=== PATIENT | female | born 1950 | race Hispanic/Latino ===

== ENCOUNTER 2021-10-24 13:26 | Inpatient (IN) | payer MEDICARE, OTHER ==
[~2021-10-24] VITALS: Ht 165.1 cm; Wt 65.3 kg
[2021-10-24] MEDS ORDERED: ONDANSETRON HCL INJ 2MG/ML 2ML 2 MG/ML VIAL IV PRN (16:00)
[2021-10-24] MEDS ORDERED: SODIUM CHLORIDE 0.9% 1000ML 1,000 ML IV SCH (16:00)
[2021-10-24 16:32] LABS: BASOPHILS % 0.2 % (0.0-1.0); EOSINOPHILS % 0.3 % (0.0-6.0); HEMOGLOBIN 13.1 g/dL (12.0-16.0); LYMPHOCYTES # (AUTO) 1.2 (1.0-3.2); LYMPHOCYTES % 8.8 % (18.0-39.1); MEAN CORPUSCULAR HEMOGLOBIN 28.3 pg (28-32); MEAN CORPUSCULAR HGB CONC 31.2 g/dL (31-35); MEAN CORPUSCULAR VOLUME 90.7 fL (81-99); MONOCYTES # (AUTO) 0.7 (0.2-0.8); MONOCYTES % 5.3 % (4.4-11.3); NEUTROPHILS # (AUTO) 11.1 (2.1-6.9); NEUTROPHILS % 84.9 % (38.7-80.0); PLATELET COUNT 252 x10e3/uL (140-360); RED BLOOD COUNT 4.63 x10e6/uL (3.6-5.1); RED CELL DISTRIBUTION WIDTH 12.5 % (11.7-14.4)
[2021-10-24 16:42] LABS: INR 0.9
[2021-10-24 16:48] LABS: ANION GAP 15.9 mmol/L (8-16); CALCIUM 9.4 mg/dL (8.4-10.2); CREATININE, SERUM 0.85 mg/dL (0.57-1.11); POTASSIUM 3.9 mmol/L (3.5-5.1)
[2021-10-24] MEDS: SODIUM CHLORIDE 0.9% 1000ML 1,000 ML IV SCH (20:31)
[2021-10-24] MEDS: Morphine 4mg INJECTION 4 MG/ML INJ IV PRN (20:31)
[2021-10-24 21:19] VITALS: BP 120/79
[2021-10-24] MEDS ORDERED: FAMOTIDINE40 MG PO (21:25)
[2021-10-24] MEDS ORDERED: AMLODIPINE BES2.5 MG PO (21:25)
[2021-10-24] MEDS ORDERED: SIMVASTATIN20 MG PO (21:25)
[2021-10-24] MEDS ORDERED: NAMZARIC 21 MG1 EACH (21:25)
[2021-10-24] MEDS ORDERED: CITALOPRAM HBR20 MG PO (21:25)
[2021-10-24] MEDS ORDERED: METOPROLOL TART50 MG PO (21:25)
[2021-10-24] MEDS ORDERED: LEVOTHYROXINE50 MCG PO (21:25)
[2021-10-24] MEDS ORDERED: namzaric PO (21:42)
[2021-10-25] VITALS (9 sets, daily range): BP systolic 108–156; BP diastolic 51–90
[2021-10-25 04:47] LABS: BASOPHILS % 0.3 % (0.0-1.0); EOSINOPHILS # (AUTO) 0.2 (0.0-0.4); EOSINOPHILS % 2.3 % (0.0-6.0); HEMATOCRIT 36.9 % (34.2-44.1); HEMOGLOBIN 11.8 g/dL (12.0-16.0); LYMPHOCYTES # (AUTO) 0.8 (1.0-3.2); LYMPHOCYTES % 9.6 % (18.0-39.1); MEAN CORPUSCULAR HEMOGLOBIN 28.5 pg (28-32); MEAN CORPUSCULAR VOLUME 89.1 fL (81-99); MONOCYTES # (AUTO) 0.5 (0.2-0.8); MONOCYTES % 5.2 % (4.4-11.3); NEUTROPHILS # (AUTO) 7.2 (2.1-6.9); NEUTROPHILS % 82.1 % (38.7-80.0); PLATELET COUNT 215 x10e3/uL (140-360); RED BLOOD COUNT 4.14 x10e6/uL (3.6-5.1); RED CELL DISTRIBUTION WIDTH 12.4 % (11.7-14.4)
[2021-10-25 05:02] LABS: ANION GAP 14.6 mmol/L (8-16); CALCIUM 8.6 mg/dL (8.4-10.2); CREATININE, SERUM 0.78 mg/dL (0.57-1.11); POTASSIUM 3.6 mmol/L (3.5-5.1)
[2021-10-25 05:16] LABS: MAGNESIUM 1.8 MG/DL (1.3-2.1)
[2021-10-25 05:36] LABS: THYROID STIMULATING HORMONE 0.267 uIU/mL (0.350-4.940)
[2021-10-25] MEDS: METOPROLOL TARTRATE 50 MG TAB PO SCH ×2 (09:00→18:00)
[2021-10-25] MEDS: LEVOTHYROXINE SODIUM 50 MCG TAB PO SCH (09:45)
[2021-10-25] MEDS: SENNA-S TABLET PO SCH ×2 (09:45→18:00)
[2021-10-25] MEDS: SODIUM CHLORIDE 0.9% 1000ML 1,000 ML IV SCH ×2 (09:48→22:05)
[2021-10-25] MEDS: Morphine 4mg INJECTION 4 MG/ML INJ IV PRN ×3 (09:50→17:56)
[2021-10-25] MEDS: ENOXAPARIN SOD INJ 40 MG/0.4 ML SYR SC SCH (18:01)
[2021-10-25 18:08] LABS: CLARITY,URINE SL CLOUDY (CLEAR); COLOR,URINE YELLOW (YELLOW)
[2021-10-25 18:09] LABS: KETONES,URINE NEGATIVE (NEGATIVE); LEUKOCYTE ESTERASE ,URINE NEGATIVE (NEGATIVE); NITRITE,URINE NEGATIVE (NEGATIVE); PROTEIN,URINE DIPSTICK TRACE (NEGATIVE); URINE UROBILINOGEN 1 mg/dL (0.2 - 1)
[2021-10-25 18:12] LABS: BACTERIA,URINE MANY /HPF; EPITHELIAL CELLS,URINE FEW /LPF; RBC,URINE 0-5 /HPF (0-5); WBC,URINE (MAN) 0-5 /HPF (0-5)
[2021-10-25] MEDS: CITALOPRAM HYDROBROMIDE 20 MG TAB PO SCH (21:00)
[2021-10-25] MEDS: FAMOTIDINE 20 MG TAB PO SCH (22:01)
[2021-10-25] MEDS: ACETAMINOPHEN 325 MG TAB PO PRN (22:02)
[2021-10-25] MEDS: HYDROCODONE/APAP 7.5MG-325MG 1 EA TAB PO PRN (22:02)
[2021-10-26] VITALS (7 sets, daily range): BP systolic 103–150; BP diastolic 63–116
[2021-10-26] MEDS: HYDROCODONE/APAP 7.5MG-325MG 1 EA TAB PO PRN (00:56)
[2021-10-26] MEDS: LEVOTHYROXINE SODIUM 50 MCG TAB PO SCH (08:17)
[2021-10-26] MEDS: SENNA-S TABLET PO SCH ×2 (09:29→17:01)
[2021-10-26] MEDS: METOPROLOL TARTRATE 50 MG TAB PO SCH ×2 (09:30→17:01)
[2021-10-26] MEDS: ACETAMINOPHEN 325 MG TAB PO PRN ×2 (09:39→17:00)
[2021-10-26] MEDS: SODIUM CHLORIDE 0.9% 1000ML 1,000 ML IV SCH (12:43)
[2021-10-26] MEDS: ENOXAPARIN SOD INJ 40 MG/0.4 ML SYR SC SCH (17:00)
[2021-10-26] MEDS: CITALOPRAM HYDROBROMIDE 20 MG TAB PO SCH (21:24)
[2021-10-26] MEDS: FAMOTIDINE 20 MG TAB PO SCH (21:25)
[2021-10-27] VITALS (7 sets, daily range): BP systolic 94–146; BP diastolic 56–96
[2021-10-27] MEDS: MELATONIN 5 MG TABLET PO SCH ×2 (01:00→21:00)
[2021-10-27] MEDS: SODIUM CHLORIDE 0.9% 1000ML 1,000 ML IV SCH ×2 (05:36→17:10)
[2021-10-27] MEDS: LEVOTHYROXINE SODIUM 50 MCG TAB PO SCH (08:19)
[2021-10-27] MEDS: SENNA-S TABLET PO SCH ×2 (08:39→17:51)
[2021-10-27] MEDS: METOPROLOL TARTRATE 50 MG TAB PO SCH (08:39)
[2021-10-27] MEDS ORDERED: MAGNESIUM HYDROXIDE 30 ML UDC PO NR (10:30)
[2021-10-27] MEDS ORDERED: MAGNESIUM HYDROXIDE 30 ML UDC PO PRN (10:30)
[2021-10-27] MEDS ORDERED: BISACODYL 10 MG SUPP PR NR (10:45)
[2021-10-27] MEDS: MAGNESIUM HYDROXIDE 30 ML UDC PO PRN ×2 (14:30→21:05)
[2021-10-27] MEDS: ENOXAPARIN SOD INJ 40 MG/0.4 ML SYR SC SCH (17:00)
[2021-10-27] MEDS: Morphine 4mg INJECTION 4 MG/ML INJ IV PRN (17:09)
[2021-10-27] MEDS: METOPROLOL TARTRATE 25 MG TAB PO SCH (17:50)
[2021-10-27] MEDS: FAMOTIDINE 20 MG TAB PO SCH (20:54)
[2021-10-27] MEDS: CITALOPRAM HYDROBROMIDE 20 MG TAB PO SCH (20:54)
[2021-10-28] VITALS (8 sets, daily range): BP systolic 87–160; BP diastolic 63–79
[2021-10-28 05:37] LABS: BASOPHILS % 0.4 % (0.0-1.0); EOSINOPHILS # (AUTO) 0.4 (0.0-0.4); EOSINOPHILS % 5.1 % (0.0-6.0); HEMATOCRIT 34.9 % (34.2-44.1); HEMOGLOBIN 11.2 g/dL (12.0-16.0); LYMPHOCYTES # (AUTO) 1.3 (1.0-3.2); LYMPHOCYTES % 15.8 % (18.0-39.1); MEAN CORPUSCULAR HEMOGLOBIN 28.1 pg (28-32); MEAN CORPUSCULAR HGB CONC 32.1 g/dL (31-35); MEAN CORPUSCULAR VOLUME 87.7 fL (81-99); MONOCYTES # (AUTO) 0.7 (0.2-0.8); MONOCYTES % 8.6 % (4.4-11.3); NEUTROPHILS # (AUTO) 5.6 (2.1-6.9); NEUTROPHILS % 69.7 % (38.7-80.0); PLATELET COUNT 224 x10e3/uL (140-360); RED BLOOD COUNT 3.98 x10e6/uL (3.6-5.1); RED CELL DISTRIBUTION WIDTH 12.4 % (11.7-14.4)
[2021-10-28 06:12] LABS: ANION GAP 13.1 mmol/L (8-16); CALCIUM 8.3 mg/dL (8.4-10.2); CREATININE, SERUM 0.68 mg/dL (0.57-1.11); POTASSIUM 3.1 mmol/L (3.5-5.1)
[2021-10-28] MEDS: LEVOTHYROXINE SODIUM 50 MCG TAB PO SCH (07:30)
[2021-10-28] MEDS ORDERED: POTASSIUM CHLORIDE 20MEQ/100ML 100 ML IV ONE (09:00)
[2021-10-28] MEDS: METOPROLOL TARTRATE 25 MG TAB PO SCH ×2 (09:00→17:13)
[2021-10-28] MEDS: SENNA-S TABLET PO SCH ×2 (09:00→17:14)
[2021-10-28] MEDS ORDERED: HYDRALAZINE HCL 20 MG/ML VIAL IV PRN (09:00)
[2021-10-28] MEDS: SOD CHL 0.45%/POT CHL 20MEQ 1,000 ML IV SCH ×2 (09:27→21:14)
[2021-10-28] MEDS ORDERED: EPHEDRINE SULFATE INJ 50 MG/ML VIAL ONE (12:52)
[2021-10-28] MEDS ORDERED: LIDOCAINE HCL 2% LOCAL INJ 5 ML SDV VIAL INJ ONE (12:52)
[2021-10-28] MEDS ORDERED: ONDANSETRON HCL INJ 2MG/ML 2ML 2 MG/ML VIAL ONE (12:52)
[2021-10-28] MEDS ORDERED: POVIDONE IODINE 0.05% 0.05 % ML PO ONE (12:52)
[2021-10-28] MEDS ORDERED: DEXAMETHASONE SOD PHOS INJ 4 MG/ML SDV ONE (12:52)
[2021-10-28] MEDS ORDERED: PROPOFOL IV EMULSION 10 MG/ML 20 ML VIAL ONE (12:52)
[2021-10-28] MEDS ORDERED: SEVOFLURANE INHAL SOLN 250 ML PEN BTL ONE (12:52)
[2021-10-28] MEDS ORDERED: FENTANYL CITRATE/PF 100MCG/2 ML INJ ONE ×2 (13:16→15:19)
[2021-10-28] MEDS ORDERED: ACETAMINOPHEN 1000 MG/100 ML IV PRN (15:00)
[2021-10-28] MEDS ORDERED: HYDROCODONE/APAP 5MG-325MG TAB PO PRN (15:00)
[2021-10-28] MEDS ORDERED: ONDANSETRON HCL INJ 2MG/ML 2ML 2 MG/ML VIAL IV PRN (15:00)
[2021-10-28] MEDS ORDERED: SODIUM CHLORIDE 0.9% 1000ML 1,000 ML IV SCH ×2 (15:00)
[2021-10-28] MEDS: MAGNESIUM HYDROXIDE 30 ML UDC PO PRN (17:12)
[2021-10-28] MEDS: BISACODYL 10 MG SUPP PR PRN (17:14)
[2021-10-28] MEDS: FAMOTIDINE 20 MG TAB PO SCH (20:16)
[2021-10-28] MEDS: MELATONIN 5 MG TABLET PO SCH (20:16)
[2021-10-28] MEDS: CITALOPRAM HYDROBROMIDE 20 MG TAB PO SCH (20:16)
[2021-10-28] MEDS: RIVAROXABAN 10 MG TABLET PO SCH (21:14)
[2021-10-29] VITALS (8 sets, daily range): BP systolic 107–146; BP diastolic 61–99
[2021-10-29] MEDS: HYDROCODONE/APAP 7.5MG-325MG 1 EA TAB PO PRN ×2 (00:02→10:28)
[2021-10-29 05:42] LABS: HEMATOCRIT 31.4 % (34.2-44.1); HEMOGLOBIN 10.3 g/dL (12.0-16.0)
[2021-10-29 06:35] LABS: ANION GAP 13.6 mmol/L (8-16); CALCIUM 8.3 mg/dL (8.4-10.2); CREATININE, SERUM 0.74 mg/dL (0.57-1.11); POTASSIUM 4.6 mmol/L (3.5-5.1)
[2021-10-29 07:08] LABS: MAGNESIUM 2.4 MG/DL (1.3-2.1); PHOSPHORUS 3.2 MG/DL (2.3-4.7)
[2021-10-29] MEDS: SENNA-S TABLET PO SCH ×2 (10:27→17:00)
[2021-10-29] MEDS: METOPROLOL TARTRATE 25 MG TAB PO SCH ×2 (10:27→17:00)
[2021-10-29] MEDS: CELECOXIB 100 MG CAP PO SCH ×2 (10:27→17:00)
[2021-10-29] MEDS: MAGNESIUM HYDROXIDE 30 ML UDC PO PRN (10:28)
[2021-10-29] MEDS: GABAPENTIN 100 MG CAP PO SCH ×3 (12:32→21:03)
[2021-10-29] MEDS: BISACODYL 10 MG SUPP PR PRN (12:32)
[2021-10-29] MEDS: RIVAROXABAN 10 MG TABLET PO SCH (21:03)
[2021-10-29] MEDS: MELATONIN 5 MG TABLET PO SCH (21:03)
[2021-10-29] MEDS: FAMOTIDINE 20 MG TAB PO SCH (21:03)
[2021-10-29] MEDS: CITALOPRAM HYDROBROMIDE 20 MG TAB PO SCH (21:03)
[2021-10-30] VITALS (8 sets, daily range): BP systolic 88–126; BP diastolic 51–91
[2021-10-30 06:07] LABS: BASOPHILS # (AUTO) 0.1 (0.0-0.1); BASOPHILS % 0.7 % (0.0-1.0); EOSINOPHILS # (AUTO) 0.5 (0.0-0.4); EOSINOPHILS % 6.3 % (0.0-6.0); HEMATOCRIT 32.8 % (34.2-44.1); HEMOGLOBIN 10.1 g/dL (12.0-16.0); LYMPHOCYTES # (AUTO) 1.6 (1.0-3.2); LYMPHOCYTES % 20.8 % (18.0-39.1); MEAN CORPUSCULAR HEMOGLOBIN 27.9 pg (28-32); MEAN CORPUSCULAR HGB CONC 30.8 g/dL (31-35); MEAN CORPUSCULAR VOLUME 90.6 fL (81-99); MONOCYTES # (AUTO) 0.8 (0.2-0.8); NEUTROPHILS # (AUTO) 4.6 (2.1-6.9); NEUTROPHILS % 61.8 % (38.7-80.0); PLATELET COUNT 244 x10e3/uL (140-360); RED BLOOD COUNT 3.62 x10e6/uL (3.6-5.1); RED CELL DISTRIBUTION WIDTH 12.8 % (11.7-14.4)
[2021-10-30 06:31] LABS: ANION GAP 12.8 mmol/L (8-16); CALCIUM 8.5 mg/dL (8.4-10.2); CREATININE, SERUM 0.74 mg/dL (0.57-1.11); POTASSIUM 3.8 mmol/L (3.5-5.1)
[2021-10-30] MEDS: LEVOTHYROXINE SODIUM 50 MCG TAB PO SCH (07:34)
[2021-10-30] MEDS ORDERED: ONDANSETRON HCL 4 MG ORAL DISINTEGRATING TAB PO PRN (08:45)
[2021-10-30] MEDS: SENNA-S TABLET PO SCH ×2 (08:49→16:36)
[2021-10-30] MEDS: CELECOXIB 100 MG CAP PO SCH ×2 (08:49→16:44)
[2021-10-30] MEDS: METOPROLOL TARTRATE 25 MG TAB PO SCH ×2 (08:49→16:37)
[2021-10-30] MEDS: GABAPENTIN 100 MG CAP PO SCH ×4 (08:49→21:44)
[2021-10-30] MEDS: RIVAROXABAN 10 MG TABLET PO SCH (21:44)
[2021-10-30] MEDS: CITALOPRAM HYDROBROMIDE 20 MG TAB PO SCH (21:44)
[2021-10-30] MEDS: FAMOTIDINE 20 MG TAB PO SCH (21:44)
[2021-10-30] MEDS: MELATONIN 5 MG TABLET PO SCH (21:44)
[2021-10-31] VITALS (7 sets, daily range): BP systolic 94–134; BP diastolic 42–85
[2021-10-31] MEDS: GABAPENTIN 100 MG CAP PO SCH ×4 (07:30→22:11)
[2021-10-31] MEDS: LEVOTHYROXINE SODIUM 50 MCG TAB PO SCH (07:30)
[2021-10-31] MEDS: CELECOXIB 100 MG CAP PO SCH ×2 (08:00→17:00)
[2021-10-31] MEDS: SENNA-S TABLET PO SCH ×2 (09:00→17:00)
[2021-10-31] MEDS: METOPROLOL TARTRATE 25 MG TAB PO SCH ×2 (09:00→17:00)
[2021-10-31] MEDS: FAMOTIDINE 20 MG TAB PO SCH (22:11)
[2021-10-31] MEDS: RIVAROXABAN 10 MG TABLET PO SCH (22:11)
[2021-10-31] MEDS: MELATONIN 5 MG TABLET PO SCH (22:11)
[2021-10-31] MEDS: CITALOPRAM HYDROBROMIDE 20 MG TAB PO SCH (22:11)
[2021-10-31] MEDS ORDERED: SODIUM CHLORIDE 0.9% 250ML 250 ML ONE (22:16)
[2021-11-01] VITALS (7 sets, daily range): BP systolic 96–129; BP diastolic 56–88
[2021-11-01] MEDS: METOPROLOL TARTRATE 25 MG TAB PO SCH ×3 (09:00→16:25)
[2021-11-01] MEDS: CELECOXIB 100 MG CAP PO SCH ×2 (10:02→16:24)
[2021-11-01] MEDS: LEVOTHYROXINE SODIUM 50 MCG TAB PO SCH (10:02)
[2021-11-01] MEDS: SENNA-S TABLET PO SCH ×2 (10:02→16:24)
[2021-11-01] MEDS: GABAPENTIN 100 MG CAP PO SCH ×4 (10:04→20:33)
[2021-11-01] MEDS: MELATONIN 5 MG TABLET PO SCH (20:32)
[2021-11-01] MEDS: CITALOPRAM HYDROBROMIDE 20 MG TAB PO SCH (20:32)
[2021-11-01] MEDS: RIVAROXABAN 10 MG TABLET PO SCH (20:33)
[2021-11-01] MEDS: FAMOTIDINE 20 MG TAB PO SCH (20:33)
[2021-11-02] VITALS: BP 131/68
[2021-11-02 04:00] VITALS: BP 155/80
[2021-11-02] MEDS: GABAPENTIN 100 MG CAP PO SCH ×4 (07:30→20:37)
[2021-11-02] MEDS: LEVOTHYROXINE SODIUM 50 MCG TAB PO SCH (07:30)
[2021-11-02] MEDS: CELECOXIB 100 MG CAP PO SCH ×2 (08:00→17:00)
[2021-11-02] MEDS: SENNA-S TABLET PO SCH ×2 (09:00→17:00)
[2021-11-02] MEDS: METOPROLOL TARTRATE 25 MG TAB PO SCH ×2 (09:00→17:00)
[2021-11-02 13:27] VITALS: BP 132/71
[2021-11-02 16:59] VITALS: BP 137/78
[2021-11-02 20:00] VITALS: BP 131/50
[2021-11-02] MEDS: MELATONIN 5 MG TABLET PO SCH (20:37)
[2021-11-02] MEDS: FAMOTIDINE 20 MG TAB PO SCH (20:37)
[2021-11-02] MEDS: CITALOPRAM HYDROBROMIDE 20 MG TAB PO SCH (20:37)
[2021-11-02] MEDS: RIVAROXABAN 10 MG TABLET PO SCH (20:37)
[2021-11-03] VITALS: BP 123/70
[2021-11-03 04:00] VITALS: BP 107/75
[2021-11-03] MEDS: GABAPENTIN 100 MG CAP PO SCH ×2 (07:30→11:30)
[2021-11-03] MEDS: LEVOTHYROXINE SODIUM 50 MCG TAB PO SCH (07:30)
[2021-11-03] MEDS: CELECOXIB 100 MG CAP PO SCH (08:00)
[2021-11-03 08:09] VITALS: BP 121/53
[2021-11-03] MEDS: METOPROLOL TARTRATE 25 MG TAB PO SCH (08:24)
[2021-11-03] MEDS: SENNA-S TABLET PO SCH (08:24)
[2021-11-03 11:45] LABS: BASOPHILS # (AUTO) 0.1 (0.0-0.1); BASOPHILS % 1.4 % (0.0-1.0); EOSINOPHILS # (AUTO) 0.5 (0.0-0.4); EOSINOPHILS % 6.1 % (0.0-6.0); HEMATOCRIT 38.2 % (34.2-44.1); HEMOGLOBIN 11.5 g/dL (12.0-16.0); LYMPHOCYTES # (AUTO) 1.6 (1.0-3.2); LYMPHOCYTES % 20.3 % (18.0-39.1); MEAN CORPUSCULAR HEMOGLOBIN 27.9 pg (28-32); MEAN CORPUSCULAR HGB CONC 30.1 g/dL (31-35); MEAN CORPUSCULAR VOLUME 92.7 fL (81-99); MONOCYTES # (AUTO) 0.7 (0.2-0.8); MONOCYTES % 9.1 % (4.4-11.3); NEUTROPHILS % 62.2 % (38.7-80.0); PLATELET COUNT 389 x10e3/uL (140-360); RED BLOOD COUNT 4.12 x10e6/uL (3.6-5.1)
[2021-11-03 12:00] LABS: ANION GAP 12.1 mmol/L (8-16); CALCIUM 9.1 mg/dL (8.4-10.2); CREATININE, SERUM 0.75 mg/dL (0.57-1.11); POTASSIUM 4.1 mmol/L (3.5-5.1)
[2021-11-03 12:04] VITALS: BP 107/46
[2021-11-03 16:22] VITALS: BP 126/78
== END 2021-11-03 17:34 | disposition home health service (06) | DRG 481 ==
LOC: ER 13:34 → ERHOLD 15:49 → MED/SURG3 19:55
PROVIDERS: ADMIT Internal Medicine; ATTEND Internal Medicine
PROC: 0QS834Z Reposition Right Femoral Shaft with Internal Fixation Device, Percutaneous Approach (ICD-10-PCS; principal; 2021-10-28 13:11)
DX: S72.012A Unspecified intracapsular fracture of left femur, initial encounter for closed fracture (principal); N39.0 Urinary tract infection, site not specified; W01.0XXA Fall on same level from slipping, tripping and stumbling without subsequent striking against object, initial encounter; Y92.009 Unspecified place in unspecified non-institutional (private) residence as the place of occurrence of the external cause; G30.9 Alzheimer's disease, unspecified; F02.80 Dementia in other diseases classified elsewhere, unspecified severity, without behavioral disturbance, psychotic disturbance, mood disturbance, and anxiety; E03.9 Hypothyroidism, unspecified; I10 Essential (primary) hypertension; E78.5 Hyperlipidemia, unspecified; Z74.09 Other reduced mobility; E11.69 Type 2 diabetes mellitus with other specified complication; K59.00 Constipation, unspecified; E87.6 Hypokalemia; F32.A Depression, unspecified; Z20.822 Contact with and (suspected) exposure to COVID-19
CPT/HCPCS: 36415; 70450; 76000; 80048; 81001; 82948; 83735; 84100; 84443; 85014; 85018; 85025; 85610; 86850; 86900; 93005; 93306; 94799; 99251; 99284; C1713; J0360; J0690; J0696; J1100; J1650; J2001; J2270; J2405; J3010; J3480; J7030; J7050

== ENCOUNTER 2022-05-29 17:14 | Emergency (ER) | payer MEDICARE ==
[~2022-05-29] VITALS: Ht 165.1 cm; Wt 65.3 kg
[~2022-05-29 17:14] MED LIST: AMLODIPINE BES2.5 MG PO; CITALOPRAM HBR20 MG PO; FAMOTIDINE40 MG PO; LEVOTHYROXINE50 MCG PO; METOPROLOL TART50 MG PO; NAMZARIC 21 MG1 EACH; SIMVASTATIN20 MG PO; namzaric PO
[2022-05-29] MEDS ORDERED: TIZANIDINE HCL2 MG PO (17:38)
[2022-05-29 19:27] LABS: BASOPHILS # (AUTO) 0.1 (0.0-0.1); BASOPHILS % 1.1 % (0.0-1.0); EOSINOPHILS # (AUTO) 0.3 (0.0-0.4); EOSINOPHILS % 4.6 % (0.0-6.0); HEMATOCRIT 41.8 % (34.2-44.1); HEMOGLOBIN 13.2 g/dL (12.0-16.0); LYMPHOCYTES % 27.4 % (18.0-39.1); MEAN CORPUSCULAR HEMOGLOBIN 28.6 pg (28-32); MEAN CORPUSCULAR HGB CONC 31.6 g/dL (31-35); MEAN CORPUSCULAR VOLUME 90.7 fL (81-99); MONOCYTES # (AUTO) 0.7 (0.2-0.8); MONOCYTES % 9.7 % (4.4-11.3); NEUTROPHILS % 56.8 % (38.7-80.0); PLATELET COUNT 256 x10e3/uL (140-360); RED BLOOD COUNT 4.61 x10e6/uL (3.6-5.1); RED CELL DISTRIBUTION WIDTH 13.3 % (11.7-14.4)
[2022-05-29 19:45] LABS: ALBUMIN 3.7 g/dL (3.5-5.0); ALBUMIN/GLOBULIN RATIO 1.1 (0.8-2.0); ANION GAP 14.8 mmol/L (8-16); CALCIUM 9.6 mg/dL (8.4-10.2); CREATININE, SERUM 0.84 mg/dL (0.57-1.11); POTASSIUM 4.8 mmol/L (3.5-5.1)
[2022-05-29] MEDS ORDERED: SODIUM CHLORIDE 0.9% 500ML 500 ML IV ONE (20:45)
[2022-05-30] MEDS ORDERED: SODIUM CHLORIDE 0.9% 500ML 500 ML IV ONE (00:30)
[2022-05-30] MEDS ORDERED: CEFDINIR250 MG/5 M PO (01:35)
[2022-05-30 03:07] VITALS: BP 119/91
== END 2022-05-30 03:10 | disposition home or self-care (01) ==
LOC: ER 17:40
DX: R05.9 Cough, unspecified (principal); M62.9 Disorder of muscle, unspecified; I10 Essential (primary) hypertension; G30.9 Alzheimer's disease, unspecified; F02.80 Dementia in other diseases classified elsewhere, unspecified severity, without behavioral disturbance, psychotic disturbance, mood disturbance, and anxiety
CPT/HCPCS: 36415; 70450; 71045; 80053; 85025; 99284; J7040 ×2